=== PATIENT | female | born 1945 | race Caucasian/White ===

== ENCOUNTER 2018-04-25 12:57 | Observation (INO) ==
[2018-04-25] MEDS ORDERED: 0.9 % Sodium Chloride 1,000 ML IVC ONE (13:01)
[2018-04-25] MEDS ORDERED: *HR* Propofol 500 MG/50 ML BOTTLE IVP ONE (13:09)
--- NOTE | 2018-04-25 13:30 | Emergency Department Note ---
Disposition Clinical Impression: Hip dislocation, right Qualifiers: Encounter type: initial encounter Qualified Code(s): S73.004A - Unspecified dislocation of right hip, initial encounter Disposition: Admitted As Inpatient Condition: Fair Time of Disposition: 14:10 Lower Extremity Injury HPI - General Chief Complaint: ED Extremity Injury, Lower Stated Complaint: hip dislocation Time Seen by Provider: 04/25/18 12:59 Source: EMS Limitations: no limitations Nursing Notes Reviewed: Yes Vital Signs Reviewed: Yes - History of Present Illness HPI Narrative: Patient is a 72-year-old female with a past medical history of hypertension, bilateral hip replacements who presents to [facility] ED with a chief complaint of right hip dislocation. States she was standing and twisted funny and felt her hip pop out of place. She has had 2 prior hip dislocations on the left hip. Denies any other injury elsewhere. She did not hit her head or lose consciousness. No chest pain, difficulty breathing, abdominal pain, problems with urination or bowel movements. No history of heart problems. Pt Subjective Complaint: hip injury Injury location: Right hip Onset (ago): Just MOBILE ARCH[employer]ECT Place: home Pain Severity: severe Pain Scale: 10 Improves with: nothing Worsens with: weight bearing, movement, palpation Associated symptoms: Reports: unable to bear weight - Related Data Home Medications Medication Instructions Recorded Confirmed Citalopram Hydrobromide 40 mg PO DAILY 04/25/18 04/25/18 [Citalopram HBr] Losartan Potassium [Cozaar] 100 mg PO DAILY 04/25/18 04/25/18 Montelukast [Singulair] 10 mg PO DAILY 04/25/18 04/25/18 hydroCHLOROthiazide 25 mg PO DAILY 04/25/18 04/25/18 [Hydrochlorothiazide] Allergies Allergy/AdvReac Type Severity Reaction Status Date / Time lisinopril Allergy Difficulty Verified 04/25/18 13:25 Breathing prednisone Allergy Difficulty Verified 04/25/18 13:25 Breathing ketorolac [From Toradol] AdvReac Headache Verified 04/25/18 13:25 All systems ED: reviewed and negative except as stated. Past Medical History - Past Medical History Attestation: Yes The following information was validated with the patient. Source: patient Medical history: Reports: arthritis, hyperlipidemia, hypertension Psychiatric history: Reports: depression - Social History Smoking Status: Never smoker Alcohol use: Reports: rarely Drug use: Reports: none Physical Exam - General Limitations: no limitations General appearance: alert, in no apparent distress - Head Head exam: atraumatic, normocephalic, normal inspection - Eye Eye exam: Present: normal appearance, EOMI - ENT ENT exam: normal exam, normal oropharynx, mucous membranes moist - Neck Neck exam: Present: normal inspection, full ROM, trachea midline - Chest Chest inspection: Present: normal inspection, symmetric chest wall rise - Respiratory Respiratory exam: Present: normal lung sounds bilaterally - Cardiovascular Cardiovascular exam: Present: regular rate, normal rhythm, normal heart sounds - Abdominal Exam Abdominal exam: Present: soft, Non-Tender. Absent: tenderness, distention, guarding, rebound, rigidity - Expanded Lower Extremity Exam Hip/Pelvis exam: Present: tenderness, internal rotation (R hip), shortening Upper leg exam: Present: normal inspection Knee exam: Present: normal inspection Lower leg exam: Present: normal inspection Foot/toe exam: Present: normal inspection Neurovascular/Tendon exam: Present: normal capillary refill. Absent: pulse deficit, motor deficit, sensory deficit Gait: unable to bear weight - Neurological Exam Neurological exam: Present: alert, oriented X3. Absent: motor sensory deficit - Psychiatric Psychiatric exam: Present: normal affect, normal mood - Skin Skin exam: Present: warm, dry, intact, normal color Course Course Narrative: Pt seen and examined. Patient with suspected right hip dislocation. Right hip x-ray ordered. We will order a liter of fluids as well as 50 g of fentanyl for pain. - Reevaluation(s) Reevaluation #1: Patient's hip x-ray does show a right anterior superior dislocation of the hip. She has prior hardware in place. No fractures observed. A consent form was obtained for procedural sedation as well as reduction of the hip. Propofol was ordered and respiratory therapy was called to prepare the patient for procedural sedation. Patient was given a total of 200 mg of propofol throughout the sedation process and 3 different attempts were made to reduce the hip. However upon post reduction x-rays, the hip continues to be dislocated. I discussed with orthopedic surgeon Dr. Coughlin who states he will take her later to the OR for reduction. We will get basic lab work, coags, and an EKG for preop. I discussed with the hospitalist who has accepted patient for admission. Time: 01:13 Vital Signs Temperature 98.0 F 04/25/18 12:58 Pulse Rate 74 04/25/18 12:58 Respiratory Rate 18 04/25/18 12:58 Blood Pressure 157/88 04/25/18 12:58 O2 Sat by Pulse Oximetry 95 04/25/18 12:58 Temperature 98.7 F 04/25/18 15:48 Pulse Rate 84 04/25/18 15:48 Respiratory Rate 16 04/25/18 15:48 Blood Pressure 155/93 04/25/18 15:48 O2 Sat by Pulse Oximetry 96 04/25/18 15:48 Oxygen Delivery Oxygen Delivery [1413] Nasal Cannula Oxygen Delivery [1357] Nasal Cannula Oxygen Delivery [1352] Nasal Cannula Oxygen Delivery [1347] Nasal Cannula Oxygen Delivery [1342] Nasal Cannula Oxygen Delivery Nasal Cannula Extremity Injury, Lower - Medical Records Medical records reviewed: Yes I reviewed the patient's medical records. - Lab Data Lab results reviewed: Yes I reviewed the patient's lab results. Result diagrams: 04/25/18 14:32 04/25/18 14:32 Lab Results 04/25/18 04/25/18 04/25/18 Range/Units 14:32 14:32 14:32 WBC 9.3 (4.3-11.1) K/mcL RBC 4.56 (3.82-4.97) M/mcL Hgb 14.1 (11.5-15.4) g/dL Hct 40.6 (35.3-44.9) % MCV 89.0 (83.0-100.0) fL MCH 30.9 (28.0-33.3) pg MCHC 34.7 (31.6-35.5) g/dL RDW 12.2 (11.5-14.5) % Plt Count 243 (140-400) K/mcL MPV 9.6 (9.4-12.4) fL Immature Gran % 0.5 (0-4) % Seg Neutrophils % 85.1 % Lymphocytes % 9.0 % Monocytes % 5.0 % Eosinophils % 0.2 % Basophils % 0.2 % Neutrophils # 7.9 (1.6-8.9) K/mcL Lymphocytes # 0.8 (0.6-4.6) K/mcL Monocytes # 0.5 (0.0-1.3) K/mcL Eosinophils # 0.0 (0.0-0.6) K/mcL Basophils # 0.0 (0.0-0.2) K/mcL PT 11.1 (9.4-12.1) Seconds INR 1.0 APTT 29.6 (26.0-36.0) Seconds Sodium 134 L (136-145) mEq/L Potassium 3.0 L (3.5-5.1) mEq/L Chloride 102 (98-107) mEq/L Carbon Dioxide 26 (23-29) mEq/L BUN 15 (8-23) mg/dL Creatinine 0.75 (0.60-1.20) mg/dL Est GFR ( Amer) > 60 (> 60) Est GFR (Non-Af Amer) > 60 (> 60) BUN/Creatinine Ratio 20 (6-26) Glucose 113 H (70-105) mg/dL Calculated Osmolality 280 (280-300) Calcium 8.7 (8.6-10.3) mg/dL - Radiology Data Radiology results reviewed: Yes I reviewed the patient's radiology results. Pelvis X-Ray 04/25/18 00:00 IMPRESSION: Unsuccessful reduction of the right hip dislocation. D/ / 04/25/2018 14:11:12 Tylor Ibrahim MD / dianne Interpreting Provider: Tylor Ibrahim MD Hip X-Ray 04/25/18 13:01 IMPRESSION: Right hip dislocation. D/ / Tylor Ibrahim MD / Tylor Ibrahim MD Interpreting Provider: Tylor Ibrahim MD Chest X-Ray 04/25/18 15:06 IMPRESSION: No acute process. D/ / Tylor Ibrahim MD / Tylor Ibrahim MD Interpreting Provider: Tylor Ibrahim MD
[2018-04-25] MEDS ORDERED: *HR* Propofol 200 MG/20 ML VIAL IVP ONE ×2 (14:02→17:41)
[2018-04-25] MEDS ORDERED: *HR* HYDROmorphone (PF) 1 MG/ML SYRINGE IVP ONE (14:07)
--- NOTE | 2018-04-25 14:15 | Emergency Department Note ---
Disposition Clinical Impression: Hip dislocation, right Qualifiers: Encounter type: initial encounter Qualified Code(s): S73.004A - Unspecified dislocation of right hip, initial encounter Disposition: Admitted As Inpatient Referrals: Ayan Finney MD [Primary Care Provider] - Forms: ED Satisfaction Letter General Adult HPI - General Chief complaint: ED Extremity Injury, Lower Stated complaint: hip dislocation Time Seen by Provider: 04/25/18 12:59 Source: EMS Limitations: no limitations - History of Present Illness Pain Scale: 10 - Related Data Allergies Allergy/AdvReac Type Severity Reaction Status Date / Time lisinopril Allergy Difficulty Verified 04/25/18 13:25 Breathing prednisone Allergy Difficulty Verified 04/25/18 13:25 Breathing ketorolac [From Toradol] AdvReac Headache Verified 04/25/18 13:25 Past Medical History - Past Medical History Medical history: Reports: arthritis, hyperlipidemia, hypertension Psychiatric history: Reports: depression - Social History Smoking Status: Never smoker Alcohol use: Reports: rarely Drug use: Reports: none Physical Exam - General Limitations: no limitations General appearance: alert, in no apparent distress Course Vital Signs Temperature 98.0 F 04/25/18 12:58 Pulse Rate 74 04/25/18 12:58 Respiratory Rate 18 04/25/18 12:58 Blood Pressure 157/88 04/25/18 12:58 O2 Sat by Pulse Oximetry 95 04/25/18 12:58 Temperature 98.0 F 04/25/18 12:58 Pulse Rate 74 04/25/18 12:58 Respiratory Rate 14 04/25/18 13:42 Blood Pressure 155/80 04/25/18 13:42 O2 Sat by Pulse Oximetry 99 04/25/18 13:42 Oxygen Delivery Oxygen Delivery Room Air Attestation Statement - Attestation Attestation: I examined this patient and my medical decision-making was reviewed with the Resident Physician. I agree with the documented findings, disposition and treatment plan as described except to the extent set forth below. 72 year old damien phillipsente to the ED with complaints of right hip disloation. 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 Neurovascuarly intact before and after the attempted reducation. WE sedated with propofol and she tolerated it well although it ruiz snot appear that the hip went back in. WE will consult ortho and then admit to medicine. dilaudid has been ordered for pain therapy and approved by Dr. Martinez
[2018-04-25 14:54] LABS: Basophils % 0.2 %; Eosinophils % 0.2 %; Hematocrit 40.6 % (35.3-44.9); Hemoglobin 14.1 g/dL (11.5-15.4); Immature Granulocytes % 0.5 % (0-4); Lymphocytes # 0.8 K/mcL (0.6-4.6); Mean Corpuscular HGB Conc 34.7 g/dL (31.6-35.5); Mean Corpuscular Hemoglobin 30.9 pg (28.0-33.3); Mean Platelet Volume 9.6 fL (9.4-12.4); Monocytes # 0.5 K/mcL (0.0-1.3); Neutrophils # 7.9 K/mcL (1.6-8.9); Platelet Count 243 K/mcL (140-400); Red Blood Count 4.56 M/mcL (3.82-4.97); Red Cell Distribution Width 12.2 % (11.5-14.5); Segmented Neutrophils % 85.1 %
[2018-04-25 15:02] LABS: Prothrombin Time 11.1 Seconds (9.4-12.1)
[2018-04-25] MEDS ORDERED: *HR* FentaNYL (PF) 100 MCG/2 ML VIAL IVP ONE (15:02)
[2018-04-25] MEDS ORDERED: Acetaminophen 325 MG TABLET PO PRN ×2 (15:04→18:55)
[2018-04-25] MEDS ORDERED: traMADol 50 MG TABLET PO PRN ×2 (15:04→18:55)
[2018-04-25] MEDS ORDERED: Naloxone 0.4 MG/ML INJ IVP PRN ×2 (15:04→18:55)
[2018-04-25 15:05] LABS: Activated Partial Thrombo Time 29.6 Seconds (26.0-36.0)
[2018-04-25] MEDS ORDERED: *HR* FentaNYL (PF) 100 MCG/2 ML VIAL IVP PRN ×4 (15:06→18:55)
--- NOTE | 2018-04-25 15:10 | Internal Med History&Physical ---
<Richard Weber - Last Filed: 04/25/18 15:33> Date of Encounter: 04/25/18 Internal Medicine - H&P: HPI History of present illness: Ms. Helms is a 72 year old female Internal Medicine - H&P: Meds Citalopram Hydrobromide [Citalopram HBr] 40 mg PO DAILY 04/25/18 [History] Losartan Potassium [Cozaar] 100 mg PO DAILY 04/25/18 [History] Montelukast [Singulair] 10 mg PO DAILY 04/25/18 [History] hydroCHLOROthiazide [Hydrochlorothiazide] 25 mg PO DAILY 04/25/18 [History] 3 Allergy/AdvReac Type Severity Reaction Status Date / Time lisinopril Allergy Difficulty Verified 04/25/18 13:25 Breathing prednisone Allergy Difficulty Verified 04/25/18 13:25 Breathing ketorolac [From Toradol] AdvReac Headache Verified 04/25/18 13:25 All Systems PM: A 10-system review of systems was performed and is negative for pertinent findings except as documented above in the HPI. - Constitutional Vitals: Temp Pulse Resp BP Pulse Ox 98.0 F 77 18 166/89 99 04/25/18 12:58 04/25/18 13:35 04/25/18 15:12 04/25/18 15:12 04/25/18 13:42 Internal Med - H&P Results - Labs CBC & Chem 7: 04/25/18 14:32 04/25/18 14:32 - Attending Attestation I saw and examined this patient independently, and my medical decision making was reviewed with the CONTRACTING MANAGER/PA on 2017. I agree with the documented findings , assessment and treatment plan as described in the H&P. - Time Spent With Patient Total time spent is greater than 50% in coordination of care (as documented) at patient's floor/unit and/or counseling patient: <[email or web address] - Last Filed: 04/25/18 15:41> Date of Encounter: 04/25/18 Time of Encounter: 15:08 Internal Medicine - H&P: HPI Admitted From: Home Plans for Post Hospital Care: Home History of present illness: Ms. Helms is a 72-year-old female with a past medical history of hypertension, bilateral hip replacements who presents to [facility] ED with a chief complaint of right hip dislocation. States she was standing and twisted and felt her hip pop out of place. She has had 2 prior hip dislocations on the left hip. ED tried manual reduction but was unsuccessful, orthopedics was called and decision was made for surgical reduction. Hospitalist will admit the patient for observation. Past Med Surg Social Fam HX - Past Medical History Medical history: arthritis, hyperlipidemia, hypertension Psychiatric history: depression - Social History Smoking Status: Never smoker Alcohol use: rarely Drug use: none All Systems PM: A 10-system review of systems was performed and is negative for pertinent findings except as documented above in the HPI. Review of systems: REVIEW OF SYSTEMS: CONSTITUTIONAL: No weight loss, fever, chills, weakness or fatigue. HEENT: Eyes: No visual loss, blurred vision, double vision or yellow sclerae. Ears, Nose, Throat: No hearing loss, sneezing, congestion, runny nose or sore throat. SKIN: No rash or itching. CARDIOVASCULAR: No chest pain, chest pressure or chest discomfort. No palpitations or edema. RESPIRATORY: No shortness of breath, cough or sputum. GASTROINTESTINAL: No anorexia, nausea, vomiting or diarrhea. No abdominal pain or blood. GENITOURINARY: No dysuria, urgency, or frequency. NEUROLOGICAL: No headache, dizziness, syncope, paralysis, ataxia, numbness or tingling in the extremities. No change in bowel or bladder control. MUSCULOSKELETAL: see HPI. HEMATOLOGIC: No anemia, bleeding or bruising. LYMPHATICS: No enlarged nodes. No history of splenectomy. PSYCHIATRIC: No history of depression or anxiety. ENDOCRINOLOGIC: No reports of sweating, cold or heat intolerance. No polyuria or polydipsia. - Constitutional Vitals: Temp Pulse Resp BP Pulse Ox 98.0 F 77 14 155/80 99 04/25/18 12:58 04/25/18 13:35 04/25/18 13:42 04/25/18 13:42 04/25/18 13:42 General appearance: Present: A&O X 3 Exam: PHYSICAL EXAMINATION: GENERAL APPEARANCE: The patient is alert, oriented and in no acute distress. HEENT: Head is normocephalic. The sinuses are nontender. Pupils are equal and reactive. The nares are patent. Oropharynx clear without lesions. NECK: Supple without lymphadenopathy. HEART: Regular rate and rhythm. LUNGS: No crackles or wheezes are heard. ABDOMEN: Soft, nontender, nondistended with good bowel sounds heard. Inguinal area is normal. EXTREMITIES: right leg exteranlly rotated. NEUROLOGICAL: Gross nonfocal. SKIN: Warm and dry without any rash. Internal Med - H&P Results - Labs CBC & Chem 7: 04/25/18 14:32 04/25/18 14:32 - Assessment and plan (1) Hip dislocation, right Current Visit: Yes Status: Acute Assessment and plan: 72-year-old female with past medical history of bilateral hip replacement and the hip dislocation presented with acute right hip pain. X-ray of right hip revealed anterior dislocation, she had a one time unsuccessful manual reduction at the ED, decision was made for surgical reduction. - History of hypertension, no history of CAD/CHF/lung disease/diabetes. - EKG ordered, chest x-ray ordered. - Orthopedics consulted. Qualifiers: Encounter type: initial encounter Qualified Code(s): S73.004A - Unspecified dislocation of right hip, initial encounter (2) Hypertension Current Visit: No Status: Chronic Assessment and plan: Continue home blood pressure medicine. Qualifiers: Hypertension type: essential hypertension Qualified Code(s): I10 - Essential (primary) hypertension (3) Hypokalemia Current Visit: Yes Status: Acute Assessment and plan: replaced, repeat BMP in am. - Time Spent With Patient Total time spent is greater than 50% in coordination of care (as documented) at patient's floor/unit and/or counseling patient: Greater than 35 minutes
[2018-04-25] MEDS ORDERED: 0.9 % Sodium Chloride 1,000 ML IVC SCH ×2 (15:15→18:55)
[2018-04-25 15:18] LABS: BUN/Creatinine Ratio 20 (6-26); Blood Urea Nitrogen 15 mg/dL (8-23); Calcium 8.7 mg/dL (8.6-10.3); Carbon Dioxide 26 mEq/L (23-29); Chloride 102 mEq/L (98-107); Glucose 113 mg/dL (70-105); Osmolality,Calculated 280 (280-300); Sodium 134 mEq/L (136-145); eGFR For African Americans > 60 (> 60); eGFR For Non-African Americans > 60 (> 60)
--- NOTE | 2018-04-25 15:51 | Orthopedic Consult Note ---
Date of Encounter: 04/25/18 Time of Encounter: 15:49 Assessment and Plan (1) Hip dislocation, right Current Visit: Yes Status: Acute Anteriorly dislocated total hip implant, first dislocation Plan: Discussed with the patient that we will do a closed reduction in the operating room. Informed consent was obtained with the risks involved. The patient replaced with an abduction wedge pillow also into the knee immobilizer. She states that she will follow-up with Dr. Curry in [place] next week. The patient is admitted overnight observation, and will be seen by physical therapy for ambulation tomorrow. Qualifiers: Encounter type: initial encounter Qualified Code(s): S73.004A - Unspecified dislocation of right hip, initial encounter History of Present Illness Chief complaint: Right hip dislocation HPI: Ms. Helms is a 72 year old female with a history of a right total hip arthroplasty, the patient was standing reaching over the hand similar to her when she felt the right hip pop out of place. The hip arthroplasties performed in nd she has had never had problems since then. The left hip was replaced in 2005 and she has had multiple dislocations followed by 2 revision procedures. The patient lives in [place] and was visiting this area today. The ER staff attempted a closed reduction under propofol but was unsuccessful. Past Med Surg Social Fam HX - Past Medical History Medical history: arthritis, hyperlipidemia, hypertension Psychiatric history: depression - Past Surgical History Surgical History: hip replacement (Bilateral total hip arthroplasties, left side revised twice) - Social History Smoking Status: Never smoker Alcohol use: rarely Drug use: none Medications and Allergies Citalopram Hydrobromide [Citalopram HBr] 40 mg PO DAILY 04/25/18 [History] Losartan Potassium [Cozaar] 100 mg PO DAILY 04/25/18 [History] Montelukast [Singulair] 10 mg PO DAILY 04/25/18 [History] hydroCHLOROthiazide [Hydrochlorothiazide] 25 mg PO DAILY 04/25/18 [History] 3 Allergy/AdvReac Type Severity Reaction Status Date / Time lisinopril Allergy Difficulty Verified 04/25/18 13:25 Breathing prednisone Allergy Difficulty Verified 04/25/18 13:25 Breathing ketorolac [From Toradol] AdvReac Headache Verified 04/25/18 13:25 All Systems Reviewed: The remainder of the systems were reviewed and are negative Physical Exam - Constitutional Vitals: Temp Pulse Resp BP Pulse Ox 98.0 F 77 18 166/89 99 04/25/18 12:58 04/25/18 13:35 04/25/18 15:12 04/25/18 15:12 04/25/18 13:42 General appearance IM: mild distress, A&O X 3, answers questions appropriately Exam: Right lower extremity in a flexed position with hip and knee flexed, severe pain with any micromotion of the hip. Otherwise grossly neurovascularly intact distally Results - Labs Result Diagrams: 04/25/18 14:32 04/25/18 14:32 Labs: Abnormal lab results Sodium 134 mEq/L (136-145) L 04/25/18 14:32 Potassium 3.0 mEq/L (3.5-5.1) L 04/25/18 14:32 Glucose 113 mg/dL (70-105) H 04/25/18 14:32 All other labs normal. - Diagnostic results Hip AP/Lateral x-ray: image reviewed (Bilateral total hip arthroplasties, right hip is dislocated anteriorly) Consult Discharge Plan - Plan Referrals: Ayan Finney MD [Primary Care Provider] -
--- NOTE | 2018-04-25 17:24 | Anesthesia Evaluation PreOp ---
Date of Encounter: 04/25/18 Time of Encounter: 17:22 - Past History Planned Operation: Right Total Hip Closed Reduction Cardiac History: HTN Pulmonary History: Denies Any Significant HX RESIDENT CARE SUPERVISOR History: Denies Any Significant HX Other Medical History: Other (depression) Anesthesia History: No Prior Anesthetic Complications, Past Anesthesia Alcohol Use: rarely Drug use: none Medications and Allergies Citalopram Hydrobromide [Citalopram HBr] 40 mg PO DAILY 04/25/18 [History] Losartan Potassium [Cozaar] 100 mg PO DAILY 04/25/18 [History] Montelukast [Singulair] 10 mg PO DAILY 04/25/18 [History] hydroCHLOROthiazide [Hydrochlorothiazide] 25 mg PO DAILY 04/25/18 [History] 3 Allergy/AdvReac Type Severity Reaction Status Date / Time lisinopril Allergy Difficulty Verified 04/25/18 13:25 Breathing prednisone Allergy Difficulty Verified 04/25/18 13:25 Breathing ketorolac [From Toradol] AdvReac Headache Verified 04/25/18 13:25 - Meds/Allergy Pre-op Review Medications Reviewed: Yes Allergies Reviewed: Yes Beta Blockers on Current Med List: No Anesthesia Results - Labs 04/25/18 14:32 04/25/18 14:32 - Imaging EKG: report reviewed (04/25/2018 sinus rhythm, probable inferior infarct) Anesthesia Exam Vital Signs/O2 Sat, Most Current Temp Pulse Resp BP Pulse Ox 98.7 F 84 16 155/93 96 04/25/18 15:48 04/25/18 15:48 04/25/18 15:48 04/25/18 15:48 04/25/18 15:48 Height: 5'4''/1.63m Weight: 136 lbs/62 kg NPO (# of Hours): 8 Pain Scale: 10 (right hip) Pain Scale Used: Numeric (1 - 10) - HEENT Pupil (Motor): EOMI Mallampati: II Teeth: Normal, Missing Denture Type: Upper: Complete, Lower: Partial Oral Opening: Greater than 3 - RESIDENT CARE SUPERVISOR LOC: Oriented RESIDENT CARE SUPERVISOR Motor: Normal RUE, Normal LUE, Normal RLE, Normal LLE, Normal Face RESIDENT CARE SUPERVISOR Sensory: Normal: RUE, LUE, RLE, LLE, Face - Cardiac Rhythm: Regular Murmur: None - Pulmonary Breath Sounds: bilateral Clear Respiratory Effort: Symmetrical Anesthesia Assess/Plan ASA Score: 2 Modified [place] Scale for Level of Consciousness: Cooperative, oriented, and tranquil Anesthetic Plan: General Monitoring Plan: Standard Monitors Recovery Plan: PACU
[2018-04-25] MEDS ORDERED: *HR* FentaNYL (PF) 100 MCG/2 ML VIAL ONE (17:41)
[2018-04-25] MEDS ORDERED: *HR* Midazolam HCl 2 MG/2 ML VIAL ONE (17:41)
[2018-04-25] MEDS ORDERED: Lidocaine -MPF 2% 2 ML VIAL ONE (17:41)
[2018-04-25] MEDS ORDERED: Dexamethasone 4 MG/ML VIAL ONE (18:12)
[2018-04-25] MEDS ORDERED: Ondansetron 4 MG/2 ML VIAL ONE (18:12)
[2018-04-25] MEDS ORDERED: *HR* Succinylcholine 200 MG/10 ML VIAL IVP ONE (18:20)
--- NOTE | 2018-04-25 18:22 | Operative Note ---
Date of procedure: 04/25/18 Pre-op diagnosis: Right total hip arthroplasty dislocation Post-op diagnosis: same Procedure: Right hip relocation of the total hip implants Anesthesia: GETA Surgeon: Joe Coughlin Was there an speech language pathology assistant present: No Estimated blood loss (cc): 0 Specimen: 0 Condition: stable Disposition: PACU Procedure in Detail: Indications for surgery: Patient is a 72-year-old woman status post a right total hip arthroplasty 10 years ago. Patient made a simple reaching movement causing a dislocation of the hip. Procedure: The patient is brought to operating room and placed or table in supine position. She underwent general anesthesia. A timeout was performed. Axial traction was applied to the right lower extremity and the implants felt engaging. The hip was then flexed, longitudinal traction and abducted until slight pop felt as the hip reduced. The fluoroscopy unit was brought in and the hip was visualized showing it to be located. The patient is placed into a knee immobilizer followed by an abduction wedge pillow. She was then extubated and taken to recovery room stable condition.
[2018-04-25] MEDS ORDERED: MOM Conc 10 ML UD.LIQ PO PRN (18:55)
[2018-04-25] MEDS ORDERED: Ringers Solution, Lactated 1,000 ML IVC SCH (18:55)
[2018-04-25] MEDS ORDERED: Temazepam 15 MG CAPSULE PO PRN (18:55)
[2018-04-25] MEDS ORDERED: Sennosides 8.6 MG TABLET PO PRN (18:55)
[2018-04-25] MEDS ORDERED: Ondansetron 4 MG/2 ML VIAL IVP PRN (18:55)
--- NOTE | 2018-04-25 18:59 | Anesthesia Evaluation Post Op ---
Date of Encounter: 04/25/18 Time of Encounter: 07:00 - Vital Signs Vital Signs: Vital Signs/O2 Sat/Glucose, Most Current Temp Pulse Resp BP Pulse Ox 04/25/18 18:52 78 14 143/77 94 04/25/18 18:42 84 16 141/81 96 04/25/18 18:32 98.4 F 76 12 158/81 95 04/25/18 15:48 98.7 F 84 16 155/93 96 04/25/18 15:12 18 166/89 - Lungs Lungs: Clear Ascult./Percussion - Airway Airway: Non-obstructed - Cardiovascular Regular Rate - Mental Status Mental Status: Alert & Oriented, Answers Appropriately - Pain Pain Scale: 0 - Nausea Vomiting Nausea Vomiting: Not Present - Hydration Hydration: Ice chips - Discharge PostOp Status: Transfer Patient to floor
--- NOTE | 2018-04-25 19:37 | Emergency Department Note ---
START Narrative - START START: CONSCIOUS SEDATION PROCEDURE NOTE: Procedural Sedation Performed by: Dr. Yeboah Attending: Dr. Nerissa Talbert Indications: Hip dislocation [place] Protocol: a time out was performed and the correct patient and site were verified Consent: The risks and benefits of monitored anesthesia care, including the risk of aspiration, deep sedation requiring airway management including possible intubation, nausea/vomiting and the risks of not performing the procedure, including severe pain and inability to complete the procedure, were all discussed with the patient. ASA Class: II Mallampati Score: 2 Pre-anesthesia evaluation, including history, exam, and informed consent is documented in the note by Dr. Skylar Day Monitoring: Continuous monitoring of heart rate, respiratory rate, pulse oximetry and ETCO2. Supplemental oxygen prior to and during procedure via nasal cannula. Resuscitation equipment available at the bedside during sedation. The patient received 170mg total of propofol and dosages were recorded on the sedation form by nursing staff Lani Brown. Patient required supplemental O2 due to one episode of hypoxia, down to 88%, returned quickly to upper 90s after physical stimulation and told to take deep breaths. The patient was recovered from the sedation without complication or incident. Patient returned to pre-sedation level of awareness. The monitoring was discontinued at this time. Post-anesthesia evaluation: Respiratory function, cardiovascular function, temperature, and mental status did return to pre-anesthetic state.
[2018-04-26 01:34] LABS: Basophils % 0.3 %; Eosinophils % 0.5 %; Hematocrit 36.1 % (35.3-44.9); Immature Granulocytes % 0.3 % (0-4); Lymphocytes # 1.7 K/mcL (0.6-4.6); Lymphocytes % 25.6 %; Mean Corpuscular HGB Conc 33.8 g/dL (31.6-35.5); Mean Corpuscular Hemoglobin 30.4 pg (28.0-33.3); Mean Platelet Volume 9.5 fL (9.4-12.4); Monocytes # 0.7 K/mcL (0.0-1.3); Monocytes % 9.9 %; Neutrophils # 4.2 K/mcL (1.6-8.9); Platelet Count 204 K/mcL (140-400); Red Blood Count 4.01 M/mcL (3.82-4.97); Red Cell Distribution Width 12.2 % (11.5-14.5); Segmented Neutrophils % 63.4 %
[2018-04-26 01:36] LABS: Hemoglobin 12.2 g/dL (11.5-15.4)
[2018-04-26 01:54] LABS: BUN/Creatinine Ratio 15 (6-26); Blood Urea Nitrogen 10 mg/dL (8-23); Calcium 8.2 mg/dL (8.6-10.3); Carbon Dioxide 26 mEq/L (23-29); Chloride 103 mEq/L (98-107); Glucose 141 mg/dL (70-105); Osmolality,Calculated 279 (280-300); Potassium 3.4 mEq/L (3.5-5.1); Sodium 134 mEq/L (136-145); eGFR For African Americans > 60 (> 60); eGFR For Non-African Americans > 60 (> 60)
[2018-04-26 06:45] VITALS: BP 134/74
[2018-04-26] MEDS ORDERED: Ascorbic Acid 500 MG TABLET PO SCH (08:00)
--- NOTE | 2018-04-26 08:18 | Discharge Summary ---
Orders not resulted at time of discharge: Pending orders 04/25/18 18:00 XR hip complete RT [XR] Routine Date of Encounter: 04/26/18 Time of Encounter: 08:15 - Discharge Diagnosis (1) Hip dislocation, right Priority: Primary Status: Acute Assessment and Plan: hx bilateral hip replacement. Presented with acute right hip pain. Right hip x- ray showed anterior dislocation (unsuccessful manual reduction at the ED). S/p closed right hip relocation on 04/25/[address] Coughlin. Evaluated by PT who noted no PT needs at discharge. Patient will follow-up with her primary orthopedic surgeon Dr. Curry in [place]. Qualifiers: Encounter type: initial encounter Qualified Code(s): S73.004A - Unspecified dislocation of right hip, initial encounter (2) Hypertension Priority: Primary Status: Chronic Assessment and Plan: per hx. BP variable but acceptable. Cont home BP medications Qualifiers: Hypertension type: essential hypertension Qualified Code(s): I10 - Essential (primary) hypertension (3) Hypokalemia Priority: Primary Status: Acute Assessment and Plan: K 3.4; replaced. Recommend repeat CMP within one week with PCP Hospital course: Please see assessment and plan for Hospital course Discharge discussed with: patient (Seen and examined at bedside. Patient is new to me, information obtained from chart review and patient report. Sitting up in chair at bedside eating breakfast. Complains of some right hip pain but states is tolerable. No numbness or tingling. He is planning on discharging home today with home healthcare. Says she has had multiple hip's location's and has been to this process may times. Has been at bedside and updated.), family - Time Spent with Patient Total time spent providing and/or coordinating discharge services: - Discharge Medications Prescriptions: Oxycodone HCl 5 mg PO Q8H PRN 7 Days #21 tablet PRN Reason: Pain Home Medications: Citalopram Hydrobromide [Citalopram HBr] 40 mg PO DAILY 04/25/18 [History] Losartan Potassium [Cozaar] 100 mg PO DAILY 04/25/18 [History] Montelukast [Singulair] 10 mg PO DAILY 04/25/18 [History] hydroCHLOROthiazide [Hydrochlorothiazide] 25 mg PO DAILY 04/25/18 [History] Oxycodone HCl 5 mg PO Q8H PRN 7 Days #21 tablet 04/26/18 [Rx] Allergies/Adverse Reactions: 3 Allergy/AdvReac Type Severity Reaction Status Date / Time lisinopril Allergy Difficulty Verified 04/25/18 13:25 Breathing prednisone Allergy Difficulty Verified 04/25/18 13:25 Breathing ketorolac [From Toradol] AdvReac Headache Verified 04/25/18 13:25 Date of admission: 04/25/18 14:54 Primary care physician: Ayan Finney MD Consults: 04/25/18 16:06 PT [Consult to Physical Therapy] [CONS] Routine Comment: Evaluate, develop and implement POC Reason for Consult: hip dislocation Does patient have active BEDREST order?: No Is patient medically & hemodynamically stable?: Yes Patient assessed for mobility or mobilized this visit?: No 04/25/18 18:55 Consult to Nurse Navigator [CONS] Routine Comment: ortho navigator Consult to Physical Therapy [CONS] Routine Comment: Evaluate, develop and implement POC Reason for Consult: total hip replacement Does patient have active BEDREST order?: No Is patient medically & hemodynamically stable?: Yes RT Post Op Consult [CONS] Routine Discharging clinician: Janis Hilliard Anticipated date of discharge: 04/26/18 - Constitutional Vitals: Temp Pulse Resp BP Pulse Ox 98.4 F 67 16 134/74 97 04/26/18 06:45 04/26/18 06:45 04/26/18 06:45 04/26/18 06:45 04/26/18 06:45 General appearance: Present: A&O X 3 - Head Head exam: Present: atraumatic, normocephalic - Eye Eye exam: Present: PERRL, conjuntiva pink, sclera anicteric Pupils: Present: PERRL - Neck Neck exam general surgery: Present: supple, trachea midline. Absent: lymphadenopathy - Respiratory Respiratory exam: Present: CTAB. Absent: accessory muscle use, rales, rhonchi, wheezes - Cardiovascular Cardiovascular exam: Present: RRR, +S1, +S2. Absent: diastolic murmur, gallop, rubs, systolic murmur - GI/Abdominal GI/Abdominal exam: Present: normal bowel sounds, soft, no peritoneal signs. Absent: distended, tenderness - Extremities Exam Extremities exam: Present: warm, radial pulses palpable and symmetrical. Absent : calf tenderness, cyanotic, pedal edema - Expanded Lower Extremities Exam Hip exam: Present: tenderness (Right hip tenderness. Right leg with immobilizer in place.) - Neurological Exam Neurological exam: Present: CN II-XII intact, oriented X3, no focal deficits. Absent: pronater drift, facial droop, speech deficit - Skin Skin exam: Present: dry, intact - Patient Status Disposition: Home, Self-Care Condition: Good Functional capacity at discharge: uses cane/walker Overall status at discharge: patient is progressing back to baseline - Discharge Instructions Instructions: Hip Dislocation (GEN) Follow Up With: Ayan Finney MD [Primary Care Provider] - (Please call your primary care physician and make a follow-up appointment within 7-10 days) Additional Instructions: Please follow-up with your primary orthopedic surgeon Dr. Curry in [place] within 1-2 weeks. - Diet and Activity Activity: ambulate only with your walker, as per physical therapy Diet: advance to your usual diet - VTE Documentation of Mechanical Device: Intermittent pneumatic compression device
[2018-04-26] MEDS ORDERED: Multivit/Ca/Min/Fe/FA 1 TAB TABLET PO SCH (09:00)
[2018-04-26] MEDS ORDERED: hydroCHLOROthiazide 25 MG TABLET PO SCH ×2 (09:00)
--- NOTE | 2018-04-27 07:09 | Electrocardiograph Report ---
[address] [address] Test Date: 2018-04-25 Pat Name: Erendira Helms Department: 104 Room: [facility] Gender: F Housing Property Manager: TMR : 1945 Requested By: Skylar Day Order Number: [id number] Reading MD: Allan Davies Measurements Intervals [place] Rate: 70 P: 78 [place]: 135 QRS: -12 QRSD: 101 T: -14 QT: 418 QTc: 438 Interpretive Statements SINUS RHYTHM BASELINE ARTIFACT COMPLICATES ACCURATE INTERPRETATION Electronically Signed On 04-27-2018 7:07:15 EDT by Allan Davies
== END 2018-04-26 11:05 | disposition home or self-care (01) ==
LOC: 3NENU 12:57 → EMEROO 12:57 → 3NENU 15:15
PROVIDERS: ADMIT Hospitalist; ATTEND Hospitalist